=== PATIENT | male | born 1995 | race Caucasian/White ===

== ENCOUNTER 2018-04-28 00:30 | Emergency (ER) | payer BC, OTHER ==
[~2018-04-28] VITALS: Ht 177.8 cm; Wt 99.8 kg
[2018-04-28 00:40] VITALS: BP_SYST 130
[2018-04-28] MEDS ORDERED: KETOROLAC TROMETHAMINE 30 MG VIAL IM ONE (01:00)
[2018-04-28 01:38] VITALS: BP_SYST 127
== END 2018-04-28 01:38 | disposition home or self-care (01) ==
LOC: SED 00:30
DX: J03.90 Acute tonsillitis, unspecified (principal); R51 Headache; R03.0 Elevated blood-pressure reading, without diagnosis of hypertension
CPT/HCPCS: 36415; 86403; 87081; 96372; 99284; J1885

== ENCOUNTER 2018-07-28 18:47 | Emergency (ER) | payer BC ==
[~2018-07-28] VITALS: Ht 175.3 cm; Wt 99.8 kg
[2018-07-28 19:45] VITALS: BP_SYST 129
--- NOTE | 2018-07-28 19:45 | NUR ---
PT PROVIDED WITH URINE CUP FOR URINE SAMPLE COLLECTION
--- NOTE | 2018-07-28 21:29 | NUR ---
Patient to ER bed 05 to gown for evaluation. Side rails up. Report given to SHASHANK Jones
--- NOTE | 2018-07-28 21:40 | NUR ---
Pt C/O pain upon urination x 1 week. Pt states pain only happens when urinating and can range from a 3 to a 10 on a pain scale. Pt states pain is nonradiating and is only in the groin area. Pt was able to provide a urine sample and states current pain level is 1/10. Pt -chest pain, -shortness of breath, -nausea, and -vomiting. Pt is laying in bed, vital signs are stable at this time. Will continue to monitor
--- NOTE | 2018-07-28 22:18 | NUR ---
ER Dr. Hanson at bedside examining patient.
[2018-07-28 22:38] LABS: BILIRUBIN,URINE NEGATIVE (NEGATIVE); BLOOD, URINE NEGATIVE (NEGATIVE); CLARITY/URINE CLEAR (CLEAR); COLOR,URINE YELLOW (YELLOW); GLUCOSE,URINE NEGATIVE (NEGATIVE); KETONES,URINE NEGATIVE (NEGATIVE); LEUKOCYTE ESTERASE ,URINE NEGATIVE (NEGATIVE); NITRITE, URINE NEGATIVE (NEGATIVE); PROTEIN URINE NEGATIVE (NEGATIVE); UROBILINOGEN,URINE 0.2 (0.2-1.0)
--- NOTE | 2018-07-28 22:50 | NUR ---
Pt is resting quietly in bed. Dr. Hanson discussed urine results with pt at [facility].
--- NOTE | 2018-07-28 23:09 | NUR ---
Dr. Hanson cleared pt for discharge. Pt refused any further treatment and walked out of the ER without discharge paperwork.
--- NOTE | 2018-07-28 23:10 | NUR ---
Patient given verbal discharge instructions and verbalizes understanding. ER MD discussed with patient the results and treatment provided. Patient in stable condition. Opportunity for questions provided and answered. Patient left without recieving discharge paperwork and refused any further treatment.
[2018-07-28 23:11] VITALS: BP_SYST 151
== END 2018-07-28 23:10 | disposition home or self-care (01) ==
LOC: SED 18:47
DX: N34.2 Other urethritis (principal)
CPT/HCPCS: 81003; 99283

== ENCOUNTER 2018-08-05 01:14 | Emergency (ER) | payer BC ==
[~2018-08-05] VITALS: Ht 175.3 cm; Wt 99.8 kg
[2018-08-05 01:50] VITALS: BP_SYST 145
[2018-08-05] MEDS ORDERED: cefTRIAXone 250 MG VIAL IM ONE (02:15)
[2018-08-05] MEDS ORDERED: AZITHROMYCIN 250 MG TABLET PO ONE (02:15)
[2018-08-05] MEDS ORDERED: ONDANSETRON 4 MG ODT TAB PO ONE (02:15)
[2018-08-05 03:30] VITALS: BP_SYST 130
== END 2018-08-05 03:30 | disposition home or self-care (01) ==
LOC: SED 01:14
DX: S30.812A Abrasion of penis, initial encounter (principal); R03.0 Elevated blood-pressure reading, without diagnosis of hypertension; X58.XXXA Exposure to other specified factors, initial encounter; Y93.89 Activity, other specified; Y92.89 Other specified places as the place of occurrence of the external cause; Y99.8 Other external cause status
CPT/HCPCS: 87491; 87591; 96372; 99283; J0696; Q0144; Q0162